=== PATIENT | female | born 1940 | race Caucasian/White ===

== ENCOUNTER → 2016-10-27 | Outpatient (CLI) | payer MEDICARE, BC ==
[~2016-10-27] MED LIST: ALLEGRA ALLERG180 MG PO; CARDIZEM CD 30300 MG PO; CENTRUM SILVER1 CTB PO; CITRUS CALCIUM200 MG PO; FISH OIL1000 MG PO; FOLIC ACID 11 MG/TA1 PO; KLOR-CON 1010 MEQ PO; MAXZIDE-25MG TA1 TAB PO; PRINIVIL20 MG PO; SINEQUAN 1010 MG/CAP PO; VALIUM 5MG T5 MG/TAB PO; VITAMIN C500 MG PO; ZYRTEC 10MG10 MG PO
== END ==
LOC: MC.RAD 08:39
DX: Z12.31 Encounter for screening mammogram for malignant neoplasm of breast (principal)

== ENCOUNTER → 2017-12-10 | Outpatient (CLI) | payer MEDICARE, BC | LOC: MC.RAD 11:19 | DX: Z12.31 Encounter for screening mammogram for malignant neoplasm of breast (principal) ==

== ENCOUNTER → 2019-01-09 | Outpatient (CLI) | payer MEDICARE, BC | LOC: MC.RAD 01-07 16:45 | DX: Z12.31 Encounter for screening mammogram for malignant neoplasm of breast (principal) ==

== ENCOUNTER 2019-05-29 04:33 | Emergency (ER) | payer MEDICARE, BC ==
[~2019-05-29] VITALS: Ht 162.6 cm; Wt 100.0 kg
[2019-05-29 04:33] VITALS: TEMP 97.8
[~2019-05-29 04:33] MED LIST changes: -CITRUS CALCIUM200 MG PO; +OSCAL 500 TAB500 MG PO
[2019-05-29 05:04] LABS: BASO % 0.3 % (0.0-2.0); GRAN # 7.8 (1.4-6.5); HEMATOCRIT 40.8 % (37.0-47.0); HEMOGLOBIN 13.3 g/dl (12.5-16.0); LYMPH # 0.7 (1.2-3.4); LYMPH % 7.4 % (20.0-51.0); MEAN CELL VOLUME 95 fl (80.0-100.0); MEAN CORPUSCULAR HEMOGLOBIN 31 pg (27.0-31.0); MEAN CORPUSCULAR HGB CONC 33 g/dl (33.0-37.0); MEAN PLATELET VOLUME 11.2 fl (7.4-10.4); MONO # 0.4 (0.1-0.6); PLATELET COUNT 159 K/mm3 (130-400); RED BLOOD COUNT 4.31 M/mm3 (4.10-5.30); REDCELL DISTRIBUTION WIDTH-CV 14.5 % (11.5-14.5)
[2019-05-29 05:16] LABS: ALBUMIN 4.3 gm/dL (3.5-5.0); BILIRUBIN,TOTAL 0.5 mg/dL (0.0-1.0); C-REACTIVE PROTEIN 0.8 mg/dL (0.0-0.9); CALCIUM 9.5 mg/dL (8.4-10.2); CREATININE, serum 1.14 (0.52-1.25); POTASSIUM 3.9 mmol/L (3.4-5.0); TOTAL PROTEIN 7.3 gm/dL (6.4-8.2)
[2019-05-29 05:32] VITALS: BP 145/61
[2019-05-29 06:59] LABS: COLLECTION METHOD CLEAN CATCH
[2019-05-29 07:06] LABS: PH 6 (5-8); SQUAMOUS EPITHELIAL None Seen /hpf; URINE APPEARANCE Clear; URINE BACTERIA Rare /hpf; URINE BILIRUBIN Negative (NEGATIVE); URINE BLOOD 3+ (NEGATIVE); URINE COLOR Yellow; URINE GLUCOSE Negative (NEGATIVE); URINE KETONE Negative (NEGATIVE); URINE LEUKOCYTE ESTERASE Negative (NEGATIVE); URINE NITRATE Negative (NEGATIVE); URINE PROTEIN(semi-quant) Negative (NEGATIVE); URINE RBC 20-50 /hpf; URINE UROBILINOGEN Negative (NEGATIVE)
[2019-05-29 07:45] VITALS: PULSE 77
[2019-05-30] MEDS ORDERED: NORCO 325 MG-51 TAB PO ×2 (14:48→14:49)
[2019-05-30] MEDS ORDERED: PYRIDIUM 100MG100 MG PO (14:49)
== END 2019-05-29 07:45 | disposition home or self-care (01) ==
LOC: COL.ER 04:33
PROVIDERS: Emergency Medicine
DX: R10.9 Unspecified abdominal pain (principal); I10 Essential (primary) hypertension; Z90.89 Acquired absence of other organs; Z98.51 Tubal ligation status
CPT/HCPCS: J2405; J7030

== ENCOUNTER 2020-09-09 18:50 | Emergency (ER) | payer MEDICARE, BC ==
[~2020-09-09] VITALS: Ht 152.4 cm; Wt 102.3 kg
[~2020-09-09 18:50] MED LIST changes: +NORCO 325 MG-51 TAB PO; +PYRIDIUM 100MG100 MG PO
[2020-09-09 18:51] VITALS: TEMP 98.1
[2020-09-09 20:00] VITALS: BP 148/70; PULSE 75
== END 2020-09-09 20:00 | disposition home or self-care (01) ==
LOC: COL.ER 18:50
DX: H93.11 Tinnitus, right ear (principal); R55 Syncope and collapse; R42 Dizziness and giddiness; I10 Essential (primary) hypertension; Z88.0 Allergy status to penicillin; Z88.5 Allergy status to narcotic agent; Z88.8 Allergy status to other drugs, medicaments and biological substances

== ENCOUNTER 2024-02-10 08:50 | Emergency (ER) | payer MEDICARE, BC ==
[~2024-02-10] VITALS: Ht 160 cm; Wt 100.0 kg
[2024-02-10 09:33] LABS: COLLECTION METHOD CLEAN CATCH
[2024-02-10 09:34] LABS: BASO % 0.5 % (0.0-2.0); EOS # 0.1 K/mm3 (0.0-0.7); EOS % 1.3 % (0.0-4.0); GRAN # 2.2 K/mm3 (1.4-6.5); GRAN % 57.5 % (42.2-75.2); HEMATOCRIT 37.5 % (37.0-47.0); HEMOGLOBIN 12.5 g/dl (12.5-16.0); LYMPH # 1.2 K/mm3 (1.2-3.4); LYMPH % 32.5 % (20.0-51.0); MEAN CELL VOLUME 94 fl (80.0-100.0); MEAN CORPUSCULAR HEMOGLOBIN 31 pg (27-31); MEAN CORPUSCULAR HGB CONC 33 g/dl (33.0-37.0); MEAN PLATELET VOLUME 10.6 fl (7.4-10.4); MONO # 0.3 K/mm3 (0.1-0.6); MONO % 7.9 % (1.7-9.3); PLATELET COUNT 177 K/mm3 (130-400); RED BLOOD COUNT 3.98 M/mm3 (4.10-5.30); REDCELL DISTRIBUTION WIDTH-CV 14.2 % (11.5-14.5)
[2024-02-10 09:46] LABS: PH 6.5 (5.0-8.5); URINE APPEARANCE CLEAR (CLEAR/HAZY); URINE BLOOD NEGATIVE (NEGATIVE); URINE COLOR YELLOW (YELLOW); URINE GLUCOSE NEGATIVE (NEGATIVE); URINE KETONE NEGATIVE (NEGATIVE); URINE NITRATE NEGATIVE (NEGATIVE); URINE PROTEIN(semi-quant) NEGATIVE (NEGATIVE)
[2024-02-10 10:00] LABS: ALBUMIN 3.8 g/dL (3.4-4.8); BILIRUBIN,TOTAL 0.8 mg/dL (0.2-1.2); C-REACTIVE PROTEIN 0.28 mg/dL (0.00-0.50); CALCIUM 9.6 mg/dL (8.4-10.2); CREATININE, serum 0.92 mg/dL (0.57-1.11); POTASSIUM 3.7 mEq/L (3.5-4.5); TOTAL PROTEIN 6.8 g/dl (6.2-8.1)
[2024-02-10] MEDS ORDERED: CEFTIN 250250 MG/TAB PO (10:32)
[2024-02-10 10:50] VITALS: BP 147/76; PULSE 69; TEMP 98.5
== END 2024-02-10 10:52 | disposition home or self-care (01) ==
LOC: COL.ER 08:50
PROVIDERS: Family Medicine
DX: N39.0 Urinary tract infection, site not specified (principal); K59.00 Constipation, unspecified; Z90.49 Acquired absence of other specified parts of digestive tract; Z98.890 Other specified postprocedural states